=== PATIENT | male | born 1985 | race Two or more races ===

== ENCOUNTER 2017-02-28 21:33 | Emergency (ER) | payer MEDICAID ==
[~2017-02-28] VITALS: Ht 170.2 cm; Wt 88.5 kg
[2017-02-28 21:56] VITALS: BP 135/74
[2017-02-28] MEDS ORDERED: IBUPROFEN 200 MG TABLET ONE (22:39)
[2017-02-28] MEDS ORDERED: ACETAMINOPHEN ES 500 MG TABLET ONE (22:39)
[2017-02-28] MEDS ORDERED: ACETAMINOPHEN 325 MG TABLET PO ONE (23:00)
[2017-02-28] MEDS ORDERED: IBUPROFEN 400 MG TABLET PO ONE (23:00)
== END 2017-02-28 22:58 | disposition home or self-care (01) ==
LOC: ER 21:39
DX: J06.9 Acute upper respiratory infection, unspecified (principal); Z88.1 Allergy status to other antibiotic agents
CPT/HCPCS: A4606; Z7610

== ENCOUNTER 2017-04-01 20:54 | Emergency (ER) | payer MEDICAID ==
[~2017-04-01] VITALS: Ht 170.2 cm; Wt 85.7 kg
--- NOTE | 2017-04-01 21:35 | NUR ---
TO BED 7 A 31 YO MALE BIBSELF AND C/O "BEEN WAKING UP X4 DAYS UNABLE TO BREATHE." UPON ARRIVAL TO ER, PATIENT IS AAOX4, AMBULATORY WITH STEADY GAIT. NO S/S OF ACUTE DISTRESS. BREATHING EVEN AND UNLABORED. O2 SATURATION ON ROOM AIR IS 99%. VSS STABLE. GOWNED. INITIATED COMFORT MEASURES. AWAITING FOR ER MD MIRELES.
[2017-04-01 22:23] LABS: BASOPHILS % (AUTO) 0.5 % (0.0-2.0); EOSINOPHILS # (AUTO) 0.2 /CMM (0.0-0.7); EOSINOPHILS % (AUTO) 3.1 % (0.0-6.0); HEMATOCRIT 38 % (39-51); HEMOGLOBIN 12.9 g/dL (13.5-17.5); LYMPHOCYTES # (AUTO) 2.5 /CMM (0.8-4.8); LYMPHOCYTES % (AUTO) 41.4 % (20.0-44.0); MEAN CORPUSCULAR HEMOGLOBIN 31 PG (26.0-33.0); MEAN CORPUSCULAR HGB CONC 34 g/dl (31.0-36.0); MEAN CORPUSCULAR VOLUME 90 fL (80-96); MONOCYTES # (AUTO) 0.5 /CMM (0.1-1.30); MONOCYTES % (AUTO) 7.5 % (2.0-12.0); NEUTROPHILS # (AUTO) 2.9 /CMM (1.8-8.9); NEUTROPHILS % (AUTO) 47.5 % (43.0-81.0); PLATELET COUNT (AUTO) 247 /CMM (150-450); RDW COEFFICIENT OF VARIATION 13.7 (11.5-15.0); WHITE BLOOD COUNT (AUTO) 6.1 K/uL (4.3-11.0)
[2017-04-01 22:50] LABS: TROPONIN I < 0.017 ng/mL (0.00-0.056)
[2017-04-01 22:53] LABS: CALCIUM, SERUM 8.4 mg/dL (8.5-10.1); CARBON DIOXIDE 26 mmol/L (21-32); CHLORIDE 104 mmol/L (98-107); CREATININE 1.1 mg/dL (0.6-1.3); GLUCOSE 116 mg/dL (74-106); POTASSIUM 3.2 mmol/L (3.5-5.1); SODIUM SERUM 140 mmol/L (136-145); UREA NITROGEN, BLOOD 14 mg/dL (7-18)
[2017-04-01] MEDS ORDERED: POTASSIUM CHLORIDE 20 MEQ TAB.PRT.SR PO ONE ×2 (23:00→23:14)
--- NOTE | 2017-04-01 23:21 | NUR ---
MEDICATED PATIENT ORDERED BY DR BAILYE. VSS.
--- NOTE | 2017-04-01 23:46 | NUR ---
Patient discharged to home in stable condition. Written and verbal after care instructions given. Patient verbalizes understanding of instruction. Patient is ambulatory with steady gait, accompanied by family. No further complaints.
[2017-04-02 02:01] VITALS: BP 128/79
== END 2017-04-01 23:46 | disposition home or self-care (01) ==
LOC: ER 20:56
DX: R06.02 Shortness of breath (principal); Z88.1 Allergy status to other antibiotic agents
CPT/HCPCS: 36415; 71010; 80048; 84484; 85025; 93005; 99285; A4606; Z7610